=== PATIENT | male | born 1990 | race Caucasian/White ===

== ENCOUNTER 2024-06-12 14:50 | Emergency (ER) | payer MEDICAID, OTHER ==
[~2024-06-12] VITALS: Ht 167.6 cm; Wt 70.0 kg
[~2024-06-12 14:50] MED LIST: KEPP500 MT; LACT10SO7 PO; THIA100T72 PO
[2024-06-12 14:54] VITALS: O2SAT 96
[2024-06-12 15:21] LABS: EOSINOPHILS % 2.6 % (0.0-5.0); HEMATOCRIT. 44.5 % (42.0-52.0); HEMOGLOBIN. 14.7 g/dL (14.0-18.0); LYMPHOCYTES % 15.5 % (20.0-50.0); MEAN CORPUSCULAR HEMOGLOBIN 30.6 pg (28.0-32.0); MEAN CORPUSCULAR VOLUME 92.7 fL (80.0-94.0); MEAN PLATELET VOLUME 7.9 fl (7.4-10.4); MONOCYTES % 7.8 % (2.0-8.0); NEUTROPHILS % 73.1 % (40.0-76.0); PLATELET 276 x1000/uL (130-400); RED CELL DISTRIBUTION WIDTH 14.6 % (11.6-14.6); WHITE BLOOD COUNT 6.1 x1000/uL (4.5-11.0)
[2024-06-12 15:24] LABS: CHLORIDE 101 mEq/L (98-107); POTASSIUM 4.6 mEq/L (3.5-5.1); SODIUM 137 mEq/L (136-145)
[2024-06-12 15:25] LABS: CARBON DIOXIDE 25 mEq/L (21-32)
[2024-06-12 15:26] LABS: CALCIUM 9.3 mg/dL (8.7-10.4)
[2024-06-12 15:29] LABS: INR 1.2; PROTHROMBIN TIME 12.4 sec (9.6-11.0)
[2024-06-12 15:30] LABS: CREATININE 1.2 mg/dL (0.6-1.3)
[2024-06-12 15:31] LABS: ETHANOL BLOOD < 10 mg/dL (<10); GLUCOSE 94 mg/dL (70-105); UREA NITROGEN BLOOD 12 mg/dL (9-23)
[2024-06-12 19:38] VITALS: BP 109/50; PULSE 77; RESP 17; TEMP 37.4; O2SAT 99
== END 2024-06-12 20:29 | disposition home or self-care (01) ==
LOC: ER 14:50
DX: R56.9 Unspecified convulsions (principal)
CPT/HCPCS: 80048; 80320; 85025; 85610; 36415; 99283; Z7610 ×3; A4606; G0480

== ENCOUNTER 2024-09-28 11:47 | Emergency (ER) | payer OTHER ==
[~2024-09-28] VITALS: Ht 165.1 cm; Wt 75.0 kg
[2024-09-28 11:51] VITALS: O2SAT 96
[2024-09-28 12:42] LABS: HEMATOCRIT. 45.5 % (42.0-52.0); HEMOGLOBIN. 15.4 g/dL (14.0-18.0); MEAN PLATELET VOLUME 7.8 fl (7.4-10.4); PLATELET 260 x1000/uL (130-400); RED BLOOD CELL COUNT 4.94 mill/uL (4.7-6.1); RED CELL DISTRIBUTION WIDTH 14.0 % (11.6-14.6)
[2024-09-28 13:00] LABS: CREATININE 1.3 mg/dL (0.6-1.3); UREA NITROGEN BLOOD 19 mg/dL (9-23)
[2024-09-28 13:01] LABS: ETHANOL BLOOD < 10 mg/dL (<10)
[2024-09-28] MEDS ORDERED: KEPP500 MT (13:23)
[2024-09-28 13:44] LABS: BAND% 1.0 % (1.0-6.0); EOSINOPHILS % MANUAL 1.0 % (0.0-5.0); LYMPHOCYTES % MANUAL 12.0 % (20.0-50.0); MONOCYTES % MANUAL 1.0 % (2.0-8.0); NEUTROPHILS % MANUAL 85.0 % (45.0-75.0); PLATELET ESTIMATE NORMAL
[2024-09-28] MEDS: LEVETIRACETAM 500MG/5ML CUP PO ONE (14:02)
[2024-09-28 14:15] VITALS: BP 133/85; PULSE 99; RESP 22; TEMP 36.9; O2SAT 98
== END 2024-09-28 14:52 | disposition home or self-care (01) ==
LOC: ER 11:47
DX: R56.9 Unspecified convulsions (principal); Z79.899 Other long term (current) drug therapy
CPT/HCPCS: 36415; 80048; 80320; 85025; 99283; A4606; G0480